=== PATIENT | female | born 1950 | race Caucasian/White ===

== ENCOUNTER 2017-09-22 16:13 | Emergency (ER) | payer OTHER, BC ==
--- OUTSIDE RECORDS SUMMARY | 2017-09-22 16:14 | XMS REPORT | Summary of Care ---
:1950 Author Name MARGO CHILD M.D. Address Unavailable Unavailable , Care Team Providers Name Role Phone MATEUSZ Engel, MARGO Unavailable Unavailable MELINDA LARA M.D. Unavailable Unavailable YOLIE ODEN, ARELI WYATT Unavailable Unavailable Unavailable Unavailable Unavailable Functional Status Name Dates Details Functional status health issues are not documented Status: Name Dates Details Cognitive status health issues are not documented Status: Problems Name Dates Details Coronary artery disease (414.00, I25.10) Status: Active Essential (primary) hypertension (401.9, I10) Status: Active Hyperlipidemia (272.4, E78.5) Status: Active UTI (urinary tract infection) (599.0, N39.0) Status: Active Medications Name Dates Details Isosorbide Mononitrate ER 30 MG Oral Tablet Extended Release 24 Hour TAKE 1 TABLET BY MOUTH DAILY Quantity: 90 Refills: 1 MARGO CHILD M.D. Start : 12-May-2017 Active Ezetimibe-Simvastatin 10-40 MG Oral Tablet TAKE 1 TABLET BY MOUTH EVERY NIGHT AT BEDTIME Quantity: 30 Refills: 5 YAQUELIN CHILD M.D.O Start : 30-Oct-2016 Active Aspirin EC 81 MG Oral Tablet Delayed Release TAKE 1 TABLET DAILY. Refills: 0 Active Nitrostat 0.4 MG Sublingual Tablet Sublingual PLACE 1 TABLET UNDER THE TONGUE EVERY 5 MINUTES FOR UP TO 3 DOSES NEEDED FOR CHEST PAIN.CALL 911 IF PAIN PERSISTS. Quantity: 25 Refills: 3 MELINDA LARA M.D. Start : 24-Apr-2011 Active Metoprolol Succinate ER 50 MG Oral Tablet Extended Release 24 Hour TAKE 1 TABLET BY MOUTH DAILY Quantity: 90 Refills: 1 MARGO CHILD M.D. Start : 12-May-2017 Active RaNITidine HCl - 150 MG Oral Capsule TAKE 1 CAPSULE AT BEDTIME NIGHTLY. Refills: 0 MARGO CHILD M.D. Start : 15-Oct-2016 Active Allergies and Adverse Reactions Name Dates Details No Known Drug Allergies (Allergy) Status: Active Past Medical History Name Dates Details History of angina pectoris (V12.59, Z86.79) Status: Resolved History of Coronary Artery Disease (V12.59) Status: Resolved History of essential hypertension (V12.59, Z86.79) Status: Resolved History of hyperlipidemia (V12.29, Z86.39) Status: Resolved Procedures Procedure Dates Details History of Gallbladder Surgery Completed History of Hysterectomy Completed History of PTC With Stent Placement Completed History of Shoulder Surgery Completed Immunization Name Dates Details Immunizations not documented Family History Name Dates Details Family history of Hypertension (V17.49) Comments: Family History Status: Active Social History Name Dates Details - Status: Name Dates Details Never smoker Vital Signs Date Test Result Details [id number] BP Systolic 126 mm[Hg] Status: BP Diastolic 80 mm[Hg] Status: Height 63 in Status: Weight 152 lb Status: Body Mass Index Calculated 26.93 kg/m2 Status: Body Surface Area Calculated 1.72 m2 Status: Heart Rate 47 /min Status: Results Date Description Value Details Results not documented Plan of Care Name Dates Details Planned Observations Planned Goals not documented Planned Encounters Appointment; MARGO CHILD M.D. On: 16-Oct-2017 9:45 Instructions Name Dates Details Instructions not documented Encounters Appointment; MARGO CHILD M.D. On: 20-Jun-2015 10:00 Encounter Diagnosis: Problem not documented Appointment; MARGO CHILD M.D. On: 19-Dec-2015 10:00 Encounter Diagnosis: Problem not documented Appointment; MARGO CHILD M.D. On: 17-Jun-2016 10:30 Encounter Diagnosis: Problem not documented Appointment; MARGO CHILD M.D. On: 15-Oct-2016 10:40 Encounter Diagnosis: Problem not documented Appointment; MARGO CHILD M.D. On: 15-Oct-2016 10:45 Encounter Diagnosis: Problem not documented Appointment; MARGO CHILD M.D. On: 17-Apr-2017 10:40 Encounter Diagnosis: Problem not documented Appointment; MARGO CHILD M.D. On: 17-Apr-2017 10:45 Encounter Diagnosis: Problem not documented
[2017-09-22] MEDS ORDERED: HYDROCODONE/APAP 5/325 MG TAB ONE (16:41)
[2017-09-22] MEDS ORDERED: ONDANSETRON 4 MG (ODT) TAB ONE (16:42)
--- NOTE | 2017-09-22 18:07 | EDPHYS ---
Physician Documentation [facility] Name: Elise Tam Age: 67 yrs Sex: Female : 1950 Arrival Date: 09/22/2017 Time: 16:14 Bed 23 Private MD: Arias Abbasi T ED Physician Krzysztof Mata HPI: 09/22 17:59 This 67 yrs old Female presents to ER via Ambulatory with complaints of Fall gs Injury. 17:59 The patient or guardian complains of decreased range of motion, an injury, pain. left gs shoulder. Context: resulted from a fall, hit car door getting inside. Onset: The symptoms/episode began/occurred acutely, just prior to arrival. Modifying factors: The symptoms are aggravated by movement, rotation of arm. Associated signs and symptoms: Pertinent negatives: Numbness in left arm. Severity of symptoms: At their worst the symptoms were severe, in the emergency department the symptoms are unchanged. The patient has not experienced similar symptoms in the past. Historical: - Allergies: 16:19 No Known Allergies; hj - Home Meds: 16:19 Metoprolol Tartrate Oral [Active]; isosorbide dinitrate Oral [Active]; atorvastatin hj oral oral [Active]; - PMHx: 16:19 Hyperlipidemia; Hypertension; hj - PSHx: 16:19 L shoulder surgery; hj 16:20 Cholecystectomy; Hysterectomy; hj - Immunization history:: Adult Immunizations up to date. - Social history:: Smoking status: Patient/guardian denies using tobacco, Patient/guardian denies using alcohol. - Immunization history: Last tetanus immunization: - up to date. - Ebola Screening: : Patient negative for fever greater than or equal to 101.5 degrees Fahrenheit, and additional compatible Ebola Virus Disease symptoms Patient denies exposure to infectious person Patient denies travel to an Ebola-affected area in the 21 days before illness onset. ROS: 17:59 All other systems are negative. gs Exam: 17:59 Head/Face: Normocephalic, atraumatic. Eyes: Pupils equal round and reactive to light, gs extra-ocular motions intact. Lids and lashes normal. Conjunctiva and sclera are non-icteric and not injected. Cornea within normal limits. Periorbital areas with no swelling, redness, or edema. ENT: Nares patent. No nasal discharge, no septal abnormalities noted. Tympanic membranes are normal and external auditory canals are clear. Oropharynx with no redness, swelling, or masses, exudates, or evidence of obstruction, uvula midline. Mucous membranes moist. Neck: Trachea midline, no thyromegaly or masses palpated, and no cervical lymphadenopathy. Supple, full range of motion without nuchal rigidity, or vertebral point tenderness. No Meningismus. Chest/axilla: Normal chest wall appearance and motion. Nontender with no deformity. No lesions are appreciated. Cardiovascular: Regular rate and rhythm with a normal S1 and S2. No gallops, murmurs, or rubs. Normal PMI, no JVD. No pulse deficits. Respiratory: Lungs have equal breath sounds bilaterally, clear to auscultation and percussion. No rales, rhonchi or wheezes noted. No increased work of breathing, no retractions or nasal flaring. Abdomen/GI: Soft, non-tender, with normal bowel sounds. No distension or tympany. No guarding or rebound. No evidence of tenderness throughout. Back: No spinal tenderness. No costovertebral tenderness. Full range of motion. Skin: Warm, dry with normal turgor. Normal color with no rashes, no lesions, and no evidence of cellulitis. Neuro: Awake and alert, GCS 15, oriented to person, place, time, and situation. Cranial nerves II-XII grossly intact. Motor strength 5/5 in all extremities. Sensory grossly intact. Cerebellar exam normal. Normal gait. 17:59 Constitutional: The patient appears alert, awake. 17:59 Musculoskeletal/extremity: ROM: limited active range of motion due to pain, limited passive range of motion due to pain, Pulses: are normal with no appreciated deficits, Sensation intact. Joints: the left shoulder displays painful range of motion, swelling, tenderness. Vital Signs: 16:20 BP 109 / 49; Pulse 55; Resp 18; Temp 98.0(O); Pulse Ox 99% on R/A; Weight 66.68 kg; hj Height 5 ft. 4 in. (162.56 cm); Pain 10/10; 17:54 BP 137 / 73; Pulse 60; Resp 17; Pulse Ox 94% on R/A; aj 18:25 BP 141 / 88; Pulse 63; Resp 18; Pulse Ox 96% on R/A; aj 16:20 Body Mass Index 25.23 (66.68 kg, 162.56 cm) [place] Coma Score: 16:20 Eye Response: spontaneous(4). Verbal Response: oriented(5). Motor Response: obeys commands(6). Total: 15. Trauma Score (Adult): 16:20 Eye Response: spontaneous(1); Verbal Response: oriented(1); Motor Response: obeys commands(2); Systolic BP: > 89 mm Hg(4); Respiratory Rate: 10 to 29 per min(4); [place] Score: 15; Trauma Score: 12 MDM: 16:35 Patient medically screened. 17:59 Differential diagnosis: Anterior dislocation with fracture, humeral head fracture, gs glenoid fracture. Data reviewed: vital signs, nurses notes. Response to treatment: the patient's symptoms have mildly improved after treatment, and as a result, I will discharge patient. 09/22 16:35 Order name: Shoulder Left (2 View) XRAY; Complete Time: 18:25 Administered Medications: 16:42 Drug: [place] 5 mg-325 mg 1 tabs Route: PO; aj 18:31 Follow up: Response: No adverse reaction; Pain is decreased 16:42 Drug: Zofran 4 mg Route: PO; aj 18:31 Follow up: Response: Nausea is decreased aj Disposition: 09/22/17 18:06 Discharged to Home. Impression: 3-part fracture of surgical neck of left humerus. - Condition is Stable. - Discharge Instructions: Humerus Fracture, Treated with Immobilization. - Prescriptions for Tylenol- Codeine #4 300-60 mg Oral Tablet - take 1 tablet by ORAL route every 6 hours As needed; 12 tablet. - Medication Reconciliation Form, Thank You Letter, Antibiotic Education, Prescription Opioid Use form. - Follow up: Josh Henry MD; When: 2 - 3 days; Reason: Re-evaluation by your physician. Signatures: Dispatcher [employer] Brinda Garza RN RN aj Joaquin, Henry, RN RN Krzysztof Barlow MD MD Corrections: (The following items were deleted from the chart) 18:31 18:06 09/22/2017 18:06 Discharged to Home. Impression: 3-part fracture of surgical neck aj of left humerus. Condition is Stable. Forms are Medication Reconciliation Form, Thank You Letter, Antibiotic Education, Prescription Opioid Use. Follow up: Josh Henry; When: 2 - 3 days; Reason: Re-evaluation by your physician. gs
--- NOTE | 2017-09-22 18:07 | ER ---
Nurse's Notes [facility] Name: Elise Tam Age: 67 yrs Sex: Female : 1950 Arrival Date: 09/22/2017 Time: 16:14 Bed 23 Private MD: Arias Abbasi T Diagnosis: 3-part fracture of surgical neck of left humerus Presentation: 09/22 16:16 Presenting complaint: Patient states: i fell about 45 mins ago, at the parking lot of [employer], stepped on a hole and hurt my L shoulder, denies hitting head and LOC; pain 10/10; denies numbness and tingling on L arm;. Transition of care: patient was not received from another setting of care. Onset of symptoms was September 22, 2017. Risk Assessment: Do you want to hurt yourself or someone else? Patient reports no desire to harm self or others. Initial Sepsis Screen: Does the patient meet any 2 criteria? No. Patient's initial sepsis screen is negative. Does the patient have a suspected source of infection? No. Patient's initial sepsis screen is negative. Care prior to arrival: None. 16:16 Method Of Arrival: Ambulatory 16:16 Acuity: KATALINA 4 16:23 Mechanism of Injury: Fall. Trauma event details: Injury occurred in the county of [facility], Injury occurred: in a public building. Injury occurred: September 22, 2017. Triage Assessment: 16:22 General: Appears in no apparent distress. uncomfortable, Behavior is calm, cooperative, hj appropriate for age. Pain: Complains of pain in anterior aspect of left shoulder. Trauma Activation: Not Applicable Physician: ED Physician; Name: ; Notified At: ; Arrived At: Physician: General Surgeon; Name: ; Notified At: ; Arrived At: Physician: Radiology; Name: ; Notified At: ; Arrived At: Physician: Respiratory; Name: ; Notified At: ; Arrived At: Physician: Lab; Name: ; Notified At: ; Arrived At: Historical: - Allergies: 16:19 No Known Allergies; hj - Home Meds: 16:19 Metoprolol Tartrate Oral [Active]; isosorbide dinitrate Oral [Active]; atorvastatin hj oral oral [Active]; - PMHx: 16:19 Hyperlipidemia; Hypertension; - PSHx: 16:19 L shoulder surgery; hj 16:20 Cholecystectomy; Hysterectomy; hj - Immunization history:: Adult Immunizations up to date. - Social history:: Smoking status: Patient/guardian denies using tobacco, Patient/guardian denies using alcohol. - Immunization history: Last tetanus immunization: - up to date. - Ebola Screening: : Patient negative for fever greater than or equal to 101.5 degrees Fahrenheit, and additional compatible Ebola Virus Disease symptoms Patient denies exposure to infectious person Patient denies travel to an Ebola-affected area in the 21 days before illness onset. Screenin:20 Abuse screen: Denies threats or abuse. Denies injuries from another. Nutritional hj screening: No deficits noted. Tuberculosis screening: No symptoms or risk factors identified. Fall Risk Fall in past 12 months (25 points). Primary Survey: 16:22 A: Airway: patent, No supplemental oxygen in use on arrival. Oral cavity: clear, gag hj reflex present, Trachea midline. Breathing/Chest: Respiratory pattern: regular, Respiratory effort: spontaneous, unlabored, Breath sounds: clear, Chest inspection: symmetrical rise and fall of the chest. Circulation: Cardiac rhythm: sinus rhythm Heart tones present. Pulses: palpable right radial artery and left radial artery. Skin color: pink, Skin temperature: warm, dry. Disability Alert. 16:22 Reassessment Airway Airway Patent Oxygen No O2 Oral cavity Clear +Gag reflex Trachea hj Midline Breathing/Chest Circulation Heart rhythm Sinus rhythm Heart tones Present Pulses Palpable Color [place] Temperature Warm Dry Disability Alert. 17:19 A: Airway: patent. Breathing/Chest: Respiratory pattern: regular, Respiratory effort: aj spontaneous, unlabored, Breath sounds: clear, bilaterally. Chest inspection: symmetrical rise and fall of the chest. Circulation: Skin color: pink, Skin temperature: warm, dry. Disability Alert. Assessment: 16:36 General: Appears in no apparent distress. comfortable, Behavior is calm, cooperative, aj appropriate for age. Neuro: Level of Consciousness is awake, alert, obeys commands, Oriented to person, place, time, situation, Appropriate for age. Respiratory: Airway is patent Respiratory effort is even, unlabored, Respiratory pattern is regular, symmetrical. Derm: Skin is intact, is healthy with good turgor, Skin is pink, warm \T\ dry. normal. Musculoskeletal: Range of motion: limited in left shoulder. Vital Signs: 16:20 BP 109 / 49; Pulse 55; Resp 18; Temp 98.0(O); Pulse Ox 99% on R/A; Weight 66.68 kg; hj Height 5 ft. 4 in. (162.56 cm); Pain 10/10; 17:54 BP 137 / 73; Pulse 60; Resp 17; Pulse Ox 94% on R/A; aj 18:25 BP 141 / 88; Pulse 63; Resp 18; Pulse Ox 96% on R/A; aj 16:20 Body Mass Index 25.23 (66.68 kg, 162.56 cm) hj [place] Coma Score: 16:20 Eye Response: spontaneous(4). Verbal Response: oriented(5). Motor Response: obeys hj commands(6). Total: 15. Trauma Score (Adult): 16:20 Eye Response: spontaneous(1); Verbal Response: oriented(1); Motor Response: obeys hj commands(2); Systolic BP: > 89 mm Hg(4); Respiratory Rate: 10 to 29 per min(4); [place] Score: 15; Trauma Score: 12 ED Course: 16:14 Patient arrived in ED. mr 16:15 Arias Abbasi MD is Private Physician. mr 16:18 Triage completed. hj 16:22 Arm band placed on right wrist. hj 16:23 Patient maintains SpO2 saturation greater than 95% on room air. hj 16:24 Boris Forrester, RN is Primary Nurse. jl7 16:27 Krzysztof Mata MD is Attending Physician. gs 16:36 Brinda Joy, RN is Primary Nurse. aj 17:33 X-ray completed. Portable x-ray completed in exam room. Patient tolerated procedure kp1 well. 17:35 Shoulder Left (2 View) XRAY In Process Unspecified. EDMS 18:05 Josh Henry MD is Referral Physician. gs 18:24 Patient has correct armband on for positive identification. aj 18:24 No provider procedures requiring assistance completed. Patient did not have IV access aj during this emergency room visit. Sling applied to left arm. 18:27 Thermoregulation: warm blanket given to patient. aj Administered Medications: 16:42 Drug: [place] 5 mg-325 mg 1 tabs Route: PO; aj 18:31 Follow up: Response: No adverse reaction; Pain is decreased aj 16:42 Drug: Zofran 4 mg Route: PO; aj 18:31 Follow up: Response: Nausea is decreased aj Intake: 18:25 PO: 0ml; Total: 0ml. aj Outcome: 18:06 Discharge ordered by . gs 18:24 Discharged to home ambulatory, with family. aj 18:24 Condition: good 18:24 Discharge instructions given to patient, family, Instructed on discharge instructions, follow up and referral plans. medication usage, Demonstrated understanding of instructions, follow-up care, medications, Prescriptions given X 1. 18:26 Patient's length of stay was not longer than 2 hours. aj 18:31 Patient left the ED. aj Signatures: Dispatcher [employer] EDMS Brinda Joy RN RN Carin Lopez mr Bigg Perez, RN RN Boris Johnson RN RN Aleyda Rico 1 Krzysztof Mata MD MD gs Corrections: (The following items were deleted from the chart) 16:23 16:20 Pulse 55bpm; Resp 18bpm; Pulse Ox 99% RA; Temp 98.0F Oral; 66.68 kg; Height 5 ft. hj 4 in.; BMI: 25.2; Pain 10/10; hj
--- NOTE | 2017-09-22 18:13 | RAD REPORT ---
EXAM DESCRIPTION: RAD - Shoulder Left 2 View - 09/22/2017 5:36 pm CLINICAL HISTORY: Left shoulder pain status post fall FINDINGS: A comminuted moderately displaced left humeral neck fracture is seen. No dislocation is n oted.
== END 2017-09-22 18:31 | disposition home or self-care (01) ==
LOC: ER 16:13
DX: S42.232A 3-part fracture of surgical neck of left humerus, initial encounter for closed fracture (principal); W18.39XA Other fall on same level, initial encounter; Y93.89 Activity, other specified; Y92.9 Unspecified place or not applicable; I10 Essential (primary) hypertension; E78.5 Hyperlipidemia, unspecified
CPT/HCPCS: 99284